=== PATIENT | female | born 1990 | race Caucasian/White ===

== ENCOUNTER 2025-09-06 22:25 | Emergency (ER) | payer BC, SELFPAY ==
[2025-09-06 22:26] VITALS: BP 148/83; PULSE 88; RESP 16; TEMP 36.8; O2SAT 99; BMI 43.5
[2025-09-06] MEDS: 0.9% Normal Saline (1000mL) 1,000 ML 999 ML IV (22:53)
[2025-09-06] MEDS: DiphenhydrAMINE 50 MG/ML Syringe IV (22:54)
--- NOTE | 2025-09-06 22:54 | EX.ED.DYSGE1 ---
HPI History of Present Illness Chief Complaint: Headache Narrative Narrative: Patient was seen and examined after presenting to ED for headache she states that she normally gets migraines so this is not any different than her usual just happens to be taking a little longer today for it to resolve she states that it started today it was gradual in onset it is not the worst headache of her life she does have some sensitivity to light and she feels like with some movements of her head will cause like a shooting numbing pain down into her left arm. PFSH PFS Medical History Migraine Home Medications ?Medication ?Instructions ?Recorded ?Last Taken ?Type loratadine 10 mg tablet 10 mg PO DAILY 09/06/25 Unknown History (Allerclear) Allergy/AdvReac Type Severity Reaction Status Date / Time No Known Allergies Allergy Verified 09/06/25 22:28 Surgical History Previous section Social History Smoking Status: Current every day smoker tobacco type: cigarettes ROS ROS ED ROS Narrative Pertinent Positives: Headache sensitivity to light vomiting Pertinent Negatives: Fevers neck stiffness diarrhea chest pain pressure shortness of breath The remainder of review of systems negative unless otherwise stated in the HPI above. Systems reviewed including constitutional, psychiatric, cardiovascular, respiratory, integument, HENT, gastrointestinal. EXAM Physical Exam Narrative Exam Narrative: Patient is afebrile hemodynamically stable she is normocephalic atraumatic pupils equal round reactive to light her speech is clear no focal neurodeficits no evidence of cerebellar dysfunction or ataxia normal range of motion of her head and neck she does not appear toxic she does have reproducible shooting pain into her left arm when palpating the base of her left skull there is no crepitus no skin discoloration there Const Vital Signs: 09/06/25 22:26 Temperature 98.3 F Temperature Source Oral Pulse Rate 88 Respiratory Rate 16 Blood Pressure 148/83 H Blood Pressure Mean 104 Pulse Ox 99 Oxygen Delivery Method Room Air MDM MDM MDM Narrative Medical decision making narrative: Nursing notes, triage notes, available previous documentation, and vital signs were reviewed. Any discrepancies noted were addressed. Differential Diagnoses: Typical migraine headache with associated muscle spasm near the occipital region on the left side not meningitis low suspicion for subarachnoid hemorrhage or intracranial mass Interventions: Benadryl Reglan Toradol Fluids Given: 1 L normal saline Labs Reviewed: Not clinically indicated at this time Imaging Reviewed: Considered imaging but not clinically indicated Previous Documentation Reviewed: None available or applicable at this time. ED Course: Patient presenting with headache states that it is like her usual migraine just lasting a little longer today should be given medications for treatment we will monitor and reassess for improvement. 09/07/2025 0109: Patient states that she feels fantastic and is ready to go home patient be discharged with return precautions follow-up recommendation she is stable for discharge. This note was made utilizing voice recognition software. All attempts were made to correct spelling or other errors prior to note completion. However, due to the fast-paced nature of emergency medicine, some errors may still be present. Discharge Plan Triage Chief Complaint: Headache ED Provider: Kashif Sheppard Dx/Rx/DC Orders Clinical Impression: Migraine, Cervical paraspinal muscle spasm, Photophobia Instructions: ED Headache Unspecified Prescriptions: No Action loratadine [Allerclear] 10 mg tablet 10 mg PO DAILY Primary Care Provider: Care Physician,No Primary Referrals: Danny Ortiz MD [Med Staff - Consulting, Neurology] - As soon as possible Care Physician,No Primary [Primary Care Provider, Medical] Activity Restrictions/Additional Instructions: Be sure to follow-up with your primary care doctor I will provide you with a referral to neurology for your migraines please return if worse Print Language: Citizen Of [place] Disposition Disposition: Home, Self Care
--- OUTSIDE RECORDS SUMMARY | 2025-09-06 23:06 | XMS RPT_ITS | CCD ---
Author Organization [facility] Partnership [facility] Care Team Providers Care Asphalt Tamper Name Role Phone No Doctor Assigned, Nodr Unavailable Unavail able Rey, Katina E Unavailable Unavailabl e Rey, Katina E Unavailable Unavailabl e Unavailable Primary Care Provider SABINO Gilbert Attending Unavailable SABINO CHURCH Attending Unavailable RASHAD MENDES II Attending UnavailSABINO Espinoza Referring Unavailable SABINO CHURCH Referring Unavailable Allergies Allergy Classification Reported Allergen(s) Allergy Type Date of Onset Reaction(s) Facility (1 source) acetaminophen / oxyCODONE; Translations: [Percocet 5/325] Drug Allergy [facility]ository (1 source) amoxicillin / clavulanate; Translations: [Augmentin] Drug Allergy [facility] (1 source) diphenhydrAMINE; Translations: [Benadryl] Drug Allergy [facility] (6 sources) Latex; Translations: [Latex] Propensity to adverse reactions to drug (disorder) 06-12-20 Rash [facility]ository (1 source) Amoxicillin / Clavulanate Drug Allergy 08-07-20 Hives [facility] (1 source) diphenhydrAMINE Drug Allergy 08-07-20 Mental Status Change [facility] Medications Completed/Discontinued Medications Medication Drug Class(es) Dates Sig (Normalized) Sig (Original) acetaminophen 325 mg oral capsule (4 sources) acetaminophen (T YLENOL) 325 mg cap Loratadine (4 sources) loratadine (CLAR ITIN ORAL) Take by mouth. 0 Active Comment on above: Take by mouth. medroxyPROGESTERone acetate 10 mg oral tablet (5 sources) Progestin Start: 3 End: 3 take 1 tablet by mouth once daily as needed medroxyPROGESTERone (PROVERA) 10 mg tablet Take 1 tablet by mouth once daily. 10 days a month as needed to start menses 10 tablet 4 06/12/2023 08/07/2023 Discontinued Comment on above: Take 1 tablet by jf th once daily. 10 days a month as needed to start menses Problems Problem Classification Problem Date Documented Date Episodic/Chronic Blindness and vision defects (2 sources) Bilateral myopia of eyes; Translations: [Myopia, bilateral] 06-29-2023 Episodic Headache; including migraine (4 sources) Migraine; Translations: [Migraine, unspecified, not intractable, without status migrainosus] Onset: 06-12-2023 06-12-2023 Chronic Immunizations and screening for infectious disease (6 sources) Patient encounter status; Translations: [Encounter for screening for human papillomavirus (HPV)] 06-12-2023 Episodic Malaise and fatigue (3 sources) Malaise and fatigue; Translations: [Other malaise] Onset: 06-12-2023 06-12-2023 Episodic Other female genital disorders (2 sources) Abnormal uterine bleeding; Translations: [Abnormal uterine and vaginal bleeding, unspecified] 06-12-2023 Chronic Other female genital disorders (1 source) Abnormal uterine and vaginal bleeding, unspecified; Translations: [Abnormal uterine bleeding (AUB)] Onset: 06-23-2023 Chronic Other screening for suspected conditions (not mental disorders or infectious disease) (3 sources) Cancer cervix screening status; Translations: [Encounter for screening for malignant neoplasm of cervix] Onset: 06-12-2023 06-12-2023 Episodic Results Test Name Value Interpretation Reference Range Facility [facility] 08-07-2023 CNOV Office Visit (OBGYWM ) -------- SUMIT MOSER ([id number]) 1990 F Date Time Provider Department 08/07/23 9:20 AM SABINO CHURCH OBGYWJeremy During your visit today, we recorded the following information about you: Blood pressure Weight Last Period 118/74 115.2 kg 08/02/23 Sabino Church MD 08/07/2023 11:02 AM Signed Sumit Moser is a 33 year old female who presents for problem visit for f/u AUB. HPI: 33 YOF took cyclic provera and had a normal menses w/ it x 2 episodes, no bleeding in between. Has Essures in place for contraception OB History T0 L2 SAB0 IAB0 Ectopic0 Multiple0 Live Births2 Silo Tender History LMP: 06/07/2023 (Exact Date), Having periods Age at Menarche: Age at First : Age at Menopause: Silo Tender History Comments: Sexual Activity: Not Asked; No partner data on record; not asked Contraception: Surgical PAST MEDICAL HISTORY Diagnosis Date Migraine PAST SURGICAL HISTORY Procedure Laterality Date SECTION HX 01/2013 ESSURE 2012 FAMILY HISTORY Problem Relation Age of Onset Heart Mother Diabetes Mother Thyroid Mother Social History Tobacco Use Smoking status: Every Day Types: Cigarettes Smokeless tobacco: Never Vaping Use Vaping Use: Never used Substance Use Topics Alcohol use: Yes Drug use: Never Comment: second hand marijuana Current Outpatient Medications Medication Sig acetaminophen (TYLENOL) 325 mg cap loratadine (CLARITIN ORAL) Take by mouth. medroxyPROGESTERone (PROVERA) 10 mg tablet Take 1 tablet by mouth once daily. 10 days a month as needed to start menses No current facility-administered medications for this visit. Allergies As of Date: 08/07/2023 Allergen Noted Reaction LATEX 06/12/2023 Rash Fully Assessed 06/29/2023 Allergies and current medication updated:Yes EXAM: LMP 06/07/2023 GENERAL: pleasant, female in no apparent distress ASSESSMENT AND PLAN: Encounter Diagnosis ICD-10-CM 1. Need for prophylactic vaccination/inoculation against viral disease Z23 second dose of HPV vaccine today reviewed labs and US doing well on cyclcic provera to control menses, cont. w/ this for now. Sabino Church MD Allergies As of Date: 08/07/2023 Noted Allergy Reaction AMOXICILLIN-POT CLAVULANATE 08/07/2023 4 - Hives Comments: As a child DIPHENHYDRAMINE 08/07/2023 1 - Mental Status Change LATEX 06/12/2023 2 - Rash Date Reviewed: 08/07/2023 Reviewed by: Sabino Church MD - Fully Assessed Reason for Visit: Follow Up [171] Cmt: Ultrasound and garasil Primary Visit Diagnosis:Screening cholesterol level [Z13.220] Other Visit Diagnosis:Need for prophylactic vaccination/inoculation against viral disease [Z23] Order(s):HPV VACCINE, 9-VALENT (GARDASIL 9) [[id number]] Order #: [id number] LIPID PANEL BASIC [SQLIPB] Order #: [id number] FUTURE medroxyPROGESTERone (PROVERA) 10 mg tabletTake 1 tablet by mouth once daily. 10 days a month as needed to start mensesDisp: 10 tabletRfl: 11 Prescriptions as of 08/07/2023 - medroxyPROGESTERone (PROVERA) 10 mg tablet Take 1 tablet by mouth once daily. 10 days a month as needed to start menses - acetaminophen (TYLENOL) 325 mg cap - loratadine (CLARITIN ORAL) Take by mouth. Problem List As Of Date 08/07/2023 Noted Resolved Migraine [G43.909] 06/12/2023 Prescriptions ordered this encounter Disp Refills Start End MEDROXYPROGESTERONE 10 MG TABLET 10 t* 11 08/07/2023 Route: ORAL Sig: Take 1 tablet by mouth once daily. 10 days a month as needed to start menses Medications Discontinued During This Encounter Prescriptions - medroxyPROGESTERone (PROVERA) 10 mg tablet (Discontinued) Take 1 tablet by mouth once daily. 10 days a month as needed to start menses Encounter Status:Closed by SABINO CHURCH on 08/07/23 Normal [facility] FEMALE PELVIS TRANSVAGon 06-23-2023 US FEMALE PELVIS TRANSVAG * * *Final Report* * * DATE OF EXAM: Jun 23 2023 9:29AM WRU 1060 - US FEMALE PELVIS TRANSVAG / PROCEDURE REASON: Abnormal uterine bleeding (AUB) * * * * Physician Interpretation * * * * EXAMINATION: TRANSVAGINAL AND LIMITED TRANSABDOMINAL FEMALE PELVIC ULTRASOUND CLINICAL HISTORY: Abnormal uterine bleeding. TECHNIQUE: Sonography of the pelvis was performed by transvaginal and transabdominal (limited) techniques. Images were obtained and stored in a permanent archive. MQ: COMPARISON: None RESULT: Uterus: -Size: 7.7 x 3.9 x 5.9 cm -Orientation: Anteverted. The uterus appears septate/arcuate. -Endometrial echo complex: Evaluation of the endometrium was inadequate. The right and left endometrium/endometrial noted primarily in the upper portion, measuring 5 mm and 4 mm respectively. The right and left essure devices suspected. -Cervix: Small nabothian cysts are suspected. -Adenomyosis assessment: There are no sonographic findings of adenomyosis. -Fibroids: There are no fibroids. Right Ovary: 3.7 x 1.7 x 3 cm - Normal sonographic appearance with physiologic follicles. Doppler imaging showed normal arterial and venous flow throughout the ovary. Left Ovary: 3.1 x 2 x 2.5 cm - Normal sonographic appearance with physiologic follicles. Doppler imaging showed normal arterial and venous flow throughout the ovary. Free Fluid: No abnormal free fluid is present. IMPRESSION: Septate/arcuate.uterus as described. Deputy Of Counter Intelligence: [facility] Transcribe Date/Time: Jun 25 2023 4:34P Dictated by : MESERET OSWALD MD This examination was interpreted and the report reviewed and electronically signed by: MESERET OSWALD MD on Jun 25 2023 4:38PM EST [id number] Normal [facility] CBC panel Auto (Bld)on 06-12 Erythrocyte distribution width (RBC) [Ratio] 12.3 % Normal 11.5-15.0 [facility] Comment on above: Order Comment: Speci men Type: BLOOD SPECIMEN Ordering Facility: [facility] Address: [address] [id number] Performed By: #### 5 8410-2 #### [facility] CLIA [id number] [address] [place] [address] [place] Hematocrit (Bld) [Volume fraction] 42.3 % Normal 36.0-46.0 [facility] Comment on above: Order Comment: Speci men Type: BLOOD SPECIMEN Ordering Facility: [facility] Address: [address] [id number] Performed By: #### 5 8410-2 #### [facility] CLIA [id number] [address] [place] [address] [place] Hemoglobin (Bld) [Mass/Vol] 14.7 g/dL Normal 11.5-15.5 [facility] Comment on above: Order Comment: Speci men Type: BLOOD SPECIMEN Ordering Facility: [facility] Address: [address] [place] [address] Performed By: #### 5 8410-2 #### [facility] CLIA [id number] [address] [place] [address] [place] MCH (RBC) [Entitic mass] 30.2 pg Normal 26.0-34.0 [facility] Comment on above: Order Comment: Speci men Type: BLOOD SPECIMEN Ordering Facility: [facility] Address: [address] [place] [address] Performed By: #### 5 8410-2 #### [facility] [place] [id number] [address] [place] [address] [place] MCHC (RBC) [Mass/Vol] 34.8 g/dL Normal 30.5-36.0 [facility] Comment on above: Order Comment: Speci men Type: BLOOD SPECIMEN Ordering Facility: [facility] Address: [address] [place] [address] Performed By: #### 5 8410-2 #### [facility] [place] [id number] [address] [place] [address] [place] MCV (RBC) [Entitic vol] 87.0 fL Normal 80.0-100.0 [facility] Comment on above: Order Comment: Speci men Type: BLOOD SPECIMEN Ordering Facility: [facility] Address: [address] [place] [address] Performed By: #### 5 8410-2 #### [facility] [place] [id number] [address] [place] [address] [place] Nucleated RBC (Bld) [#/Vol] 10*3/uL Normal <0.01 [facility] Comment on above: Order Comment: Speci men Type: BLOOD SPECIMEN Ordering Facility: [facility] Address: [address] [place] [address] Performed By: #### 5 8410-2 #### [facility] CLIA [id number] [address] [place] [address] [place] Platelet mean volume (Bld) [Entitic vol] 8.7 fL Low 9.0-12.7 [facility] Comment on above: Order Comment: Speci men Type: BLOOD SPECIMEN Ordering Facility: [facility] Address: [address] [place] [address] Performed By: #### 5 8410-2 #### [facility] CLIA [id number] [address] [place] [address] [place] Platelets (Bld) [#/Vol] 331 10*3/uL Normal 150-400 [facility] Comment on above: Order Comment: Speci men Type: BLOOD SPECIMEN Ordering Facility: [facility] Address: [address] [place] [address] Performed By: #### 5 8410-2 #### [facility] CLIA [id number] [address] [place] [address] [place] RBC (Bld) [#/Vol] 4.86 10*6/uL Normal 3.90-5.20 [facility] Comment on above: Order Comment: Speci men Type: BLOOD SPECIMEN Ordering Facility: [facility] Address: [address] [place], [place] [address] Performed By: #### 5 8410-2 #### [facility] CLIA [id number] [address] [place] [address] [place] WBC (Bld) [#/Vol] 9.65 10*3/uL Normal 3.70-11.00 [facility] Comment on above: Order Comment: Speci men Type: BLOOD SPECIMEN Ordering Facility: [facility] Address: [place] [address] Performed By: #### 5 8410-2 #### [facility] MING [id number] [address] [place] [address] [place] Erythrocyte distribution width (RBC) [Ratio] 12.3 % 11.5 - 15.0 % [facility] Hematocrit (Bld) [Volume fraction] 42.3 % 36.0 - 46.0 % [facility] Hemoglobin (Bld) [Mass/Vol] 14.7 g/dL 11.5 - 15.5 g/dL [facility] MCH (RBC) [Entitic mass] 30.2 pg 26.0 - 34.0 pg [facility] MCHC (RBC) [Mass/Vol] 34.8 g/dL 30.5 - 36.0 g/dL [facility] MCV (RBC) [Entitic vol] 87.0 fL 80.0 - 100.0 fL [facility] Nucleated RBC (Bld) [#/Vol] <0.01 k/uL [facility] Platelet mean volume (Bld) [Entitic vol] 8.7 fL Low 9.0 - 12.7 fL [facility] Platelets (Bld) [#/Vol] 331 10*3/uL 150 - 400 k/uL [facility] RBC (Bld) [#/Vol] 4.86 10*6/uL 3.90 - 5.2 0 m/uL [facility] WBC (Bld) [#/Vol] 9.65 10*3/uL 3.70 - 11. 00 k/uL [facility] CNOVon 06-12-2023 CNOV Office Visit (OBGYWM ) -------- SUMIT MOSER ([id number]) 1990 F Date Time Provider Department 06/12/23 9:40 AM SABINO CHURCH OBGYWM During your visit today, we recorded the following information about you: Blood pressure Weight Height Last Period 122/84 116.6 kg 1.689 m 06/07/23 Sabino Church MD 06/12/2023 1:10 PM Signed Sumit is a 33 year old who presents for an annual gynecologic exam with complaints, heavy and irreg menses . Has always had heavy. Bleeds through overnight pad at times in a couple of hours. Sometimes skips a month. Sometimes spotting in the middle Menses: very irregular Contraception: Essure HPV vaccine: uncertain Last Pap: normal HPV: N/A History of abnormal pap: No Last mammogram: never Sexually active: Yes History of STDS: None Last sexual contact: one lifetime partner, no changes in this OB History T0 L2 SAB0 IAB0 Ectopic0 Multiple0 Live Births2 Silo Tender History LMP: 06/07/2023 (Exact Date), Having periods Age at Menarche: Age at First : Age at Menopause: Silo Tender History Comments: Sexual Activity: Yes; No partner data on record; ESSURE Contraception: Surgical PAST MEDICAL HISTORY Diagnosis Date Migraine PAST SURGICAL HISTORY Procedure Laterality Date SECTION HX 01/2013 ESSURE 2012 FAMILY HISTORY Problem Relation Age of Onset Heart Mother Diabetes Mother Thyroid Mother SOCIAL HISTORY Social History Tobacco Use Smoking status: Every Day Types: Cigarettes Smokeless tobacco: Never Vaping Use Vaping Use: Never used Substance Use Topics Alcohol use: Yes Drug use: Never Comment: second hand marijuana REVIEW OF SYSTEMS Abdomen: No abdominal pain, nausea, vomiting, diarrhea, or constipation. No bloating, early satiety, indigestion, or increased flatulence. Bladder: No dysuria, gross hematuria, urinary frequency, urinary urgency, or incontinence. Breast: No breast lumps, nipple d/c, overlying skin changes, redness or skin retraction. Allergies and current medication updated:Yes EXAM: BP 122/84 Ht 5' 6.5 (1.69m) Wt 257 lb (116.6kg) LMP 06/07/2023 BMI 40.86 kg/(m2). GENERAL: pleasant, female in no apparent distress HEENT: Normocephalic, atraumatic, mucus membranes moist, and no lesions NECK: Supple, full range of motion, no adenopathy, and thyroid normal DERMATOLOGY: Normal, without lesions, non-icteric, and non-hirsute BREAST: soft, non-tender, symmetric, no dominant mass, normal nipple-areolar complex, no lymphadenopathy, and no nipple discharge CHEST: Normal inspiratory effort ABDOMEN: soft, non-tender, and no masses PELVIC: external genitalia normal, normal Bartholin's glands, urethra, [place]'s glands, no vulvar lesions, no cervical lesions, good vaginal support, physiologic discharge present, normal appearing perineal body and perianal region BIMANUAL: uterus normal size, shape and consistency, no adnexal masses, and non-tender RECTOVAGINAL: deferred. NEURO: alert and oriented x3,exam grossly non-focal EXTREMITIES: normal ASSESSMENT/PLAN: 1) Health maintenance: Pap done with HPV. Mammogram starting age 40. hpv vaccine discussed, recpommended,agrees 2) Contraception: Essure. Contraceptive options reviewed and information provided. 3) STD screening: Declined STD check. 4) Follow up one year or sooner as needed AUB- check pelvic US and labs cyclic provera d/w her other options other health screens ordered Sabino Church MD Patient identified by name and date of . Sumit Moser is here for her HPV 9 vaccination, injection # one of the series. Patient ?No Gardasil injection was given without incident. See immunizations for details of immunizations administered today. VIS sheet provided: Yes Patient advised to follow up in 2 months from the 1st injection Provider Sabino Church MD was present in office at time of injection. Sabino Han MA, MD 06/12/2023 10:10 AM Signed Gardasil Gardasil is a vaccine to protect against Human Papillomavirus (HPV) types 6, 11, 16, 18, 31,33,45, 52, 58. These viruses cause cancer and precancerous lesions on the cervix (opening between vagina and uterus), in the vagina and on the vulva (skin around the outside of the vagina) as well as genital warts. The vaccine cannot cause these diseases and cannot treat them if already present. Gardasil works best if given before contact with HPV. Most people are exposed to HPV soon after starting sexual activity. The vaccine is recommended between the ages of 9 and 45. Gardasil does not protect against all strains of HPV. Women who receive the vaccine still need to have regular pelvic exams and cervical cancer screening with the pap smear. You should ask your doctor if Gardasil is right for you if you have a weak (more content not included)... Normal [facility] HPV W/GENOTYPE THIN PREPon 0 06-12-2023 HPV 16 Ag Ql (Unsp spec) Negative Normal Negative for HPV DNA high risk type 16 by PCR [facility] Comment on above: Order Comment: Speci men Type: FLUID SPECIMEN Ordering Facility: [facility] Address: [address] [place] [address] Performed By: #### H PVHRT #### [facility] CLIA [id number] [address] [place] [address] HPV 18 Ag Ql (Unsp spec) Negative Normal Negative for HPV DNA high risk type 18 by PCR [facility] Comment on above: Order Comment: Speci men Type: FLUID SPECIMEN Ordering Facility: [facility] Address: [address] [place] [address] Performed By: #### H PVHRT #### [facility] CLIA [id number] [address] [place] [address] [place] HPV 31+33+35+39+45+51+ 52+56+58+59+66+68 DNA DONNA+probe Ql (Cvx) Negative for HPV DNA high risk types: 31,33,35,39,45,51,52,56, 58,59,66,68 by PCR. Normal Negative for HPV DNA high risk types: 31,33,35,39,45 ,51,52,56,58,5 9,66,68 by PCR. [facility] Comment on above: Order Comment: Speci men Type: FLUID SPECIMEN Ordering Facility: [facility] Address: [address] [place] [address] Performed By: #### H PVHRT #### [facility] CLIA [id number] [address] [place] [address] [place] HbA1c (Bld)on 06-12-2023 Average glucose Estimated from glycated hemoglobin (Bld) [Mass/Vol] 105 mg/dL [facility] HbA1c (Bld) [Mass fraction] 5.3 % 4.3 - 5.6 % [facility] Average glucose Estimated from glycated hemoglobin (Bld) [Mass/Vol] 105 mg/dL Normal [facility] Comment on above: Order Comment: Briana cartwright Type: BLOOD SPECIMEN Ordering Facility: [facility] Address: [address] [place] [address] Result Comment: eAG: (Estimated average glucose) is a calculated value from HgbA1c and is printing supplies sales representative of the average blood glucose level in the last 2-3 month period. Performed By: #### 5 5454-3 #### [facility] CLIA [id number] [facility] HbA1c (Bld) [Mass fraction] 5.3 % Normal 4.3-5.6 [facility] Comment on above: Order Comment: Briana cartwright Type: BLOOD SPECIMEN Ordering Facility: [facility] Address: [address] [place] [address] Result Comment: Amer [place] Diabetes Association guidelines indicate that patients with HgbA1c in the range 5.7-6.4% are at increased risk for development of diabetes, and intervention by lifestyle modification may be beneficial. HgbA1c greater or equal to 6.5% is considered diagnostic of diabetes. Performed By: #### 5 5454-3 #### [facility] CLIA [id number] [address] [place] [address] [place] PAP TESTon 06-12-2023 ADEQUACY Satisfactory for interpretation Normal [facility] Comment on above: Order Comment: Briana cartwright Type: FLUID SPECIMEN Ordering Facility: [facility] Address: [address] [place] [address] Performed By: #### L [id number] #### [facility] CLIA [id number] [address] [place] CASE REPORT Normal [facility] Comment on above: Order Comment: Speci men Type: FLUID SPECIMEN Ordering Facility: [facility] Address: [address] [place] [address] Result Comment: Gyne cologic Cytology Report Case: [id number] Authorizing Provider: Sabino Church MD Collected: 06/12/2023 10:22 AM Ordering Location: OB/Gynecology Received: 06/13/2023 08:38 AM First Screen: Gayathri Church, [place], ASCP Specimen: Pap Test, ThinPrep, Cervix Performed By: #### L [id number] #### [facility] CLIA [id number] [facility] [place] [address] [place] CLINICAL HISTORY, CYTOLOGY, JUNIOR RECRUITER Routine Exam Normal [facility] Comment on above: Order Comment: Speci men Type: FLUID SPECIMEN Ordering Facility: [facility] Address: [address] [place] [address] Performed By: #### L [id number] #### [facility] CLIA [id number] [address] [place] [address] [place] CYTOLOGY PAP OTHER INT Predominance of coccobacilli consistent with shift in vaginal cody Normal [facility] Comment on above: Order Comment: Speci men Type: FLUID SPECIMEN Ordering Facility: [facility] Address: [address] [place] [address] Performed By: #### L [id number] #### [facility] CLIA [id number] [address] [place] [address] [place] FINAL PERFORMING LAB Normal [facility] Comment on above: Order Comment: Speci men Type: FLUID SPECIMEN Ordering Facility: [facility] Address: [address] [place] [address] Result Comment: Tech nical component, ballast cleaning operator screening performed at [facility], [address] [id number] CLIA# [id number] Diagnostic interpretation performed at [facility], [facility] [id number] CLIA# [id number] Specialist: Wally Kim M.D. Performed By: #### L [id number] #### [facility] CLIA [id number] [address] [place] [address] [place] HPV REFLEX Yes HPV Normal [facility] Comment on above: Order Comment: Speci men Type: FLUID SPECIMEN Ordering Facility: [facility] Address: [address] [place] [address] Performed By: #### L [id number] #### [facility] CLIA [id number] [address] [place] [address] [place] INTERPRETATION, CYTOLOGY, JUNIOR RECRUITER Normal [facility] Comment on above: Order Comment: Speci men Type: FLUID SPECIMEN Ordering Facility: [facility] Address: [address] [place] [address] Result Comment: Nega tive for intraepithelial lesion or malignancy. Performed By: #### L [id number] #### [facility] CLIA [id number] [address] [place] [address] [place] LMP 06/07/2023 Normal [facility] Comment on above: Order Comment: Speci men Type: FLUID SPECIMEN Ordering Facility: [facility] Address: [address] [place] [address] Performed By: #### L [id number] #### [facility] CLIA [id number] [address] [place] [address] [place] PAP DISCLAIMER COMMENT The Pap Smear is a screening test for cervical cancer. False negative results occur with all screening tests, emphasizing the need for rescreening at recommended intervals, and clinical correlation. Normal [facility] Comment on above: Order Comment: Speci men Type: FLUID SPECIMEN Ordering Facility: [facility] Address: [address] [place] [address] Performed By: #### L [id number] #### [facility] CLIA [id number] [address] [place] [address] OF [place] PAP ONLINE PRODUCER COMMENT This specimen has be en analyzed by the ThinPrep Imaging System, an automated imaging and review system, which assists the laboratory in evaluating cells on ThinPrep Pap tests. Following automated imaging, selected chaidez from every slide are reviewed by a ballast cleaning operator. Normal [facility] Comment on above: Order Comment: Speci men Type: FLUID SPECIMEN Ordering Facility: [facility] Address: [address] [place] [address] Performed By: #### L [id number] #### [facility] CLIA [id number] [address] [place] [address] [place] TSH BLDon 06-12-2023 TSH Qn 1.070 m[IU]/L 0.270 - 4.200 mIU/L [facility] TSH SerPl-aCncon 06-12-2023 TSH Qn 1.070 m[IU]/L Normal 0.270-4.200 [facility] Comment on above: Order Comment: Speci men Type: BLOOD SPECIMEN Ordering Facility: [facility] Address: [address] [place] [address] Result Comment: If t he patient is , TSH reference range varies by gestational period: First Trimester (weeks 9-12): 0.180-2.990 mIU/L Second Trimester: 0.110-3.980 mIU/L Third Trimester: 0.480-4.710 mIU/L Reji Chambers et al. A Practical Approach for the Verifications and Determination of Site- and Trimester-Specific Reference Intervals for Thyroid Function tests in . Thyroid, 2019:29:3:412-420. Iain E, et al. 2017 Guidelines of the [place] Thyroid [employer] for the Diagnosis and Management of Thyroid Disease during and the . Thyroid, 2017:27:3:315-389. 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 Typing wasconfirmed by monoclonal antibody microscopicimmunofluorescence.Performed At: [facility] [id number] Monty Gil MD Ph:[phone] Performed By: #### 1 [id number] ####[facility] Send Outs [address] [place] [address] C Urineon 07-27-2017 C Urine Final Report: Normal skin cody isolated Normal [facility] Comment on above: Performed By: #### 2 [id number] ####[facility] Microbiology [address] [place] [address] U BhCG Qlton 07-25-2017 HCG.beta subunit Qn Negative Normal Neg [facility] Comment on above: Performed By: #### 2 [id number] ####[facility] Urinalysis Manual [address] [place] [address] UA Completeon 07-25-2017 UA Blood 3+ Normal Negative [facility] Comment on above: Performed By: #### 8 [id number] ####[facility] Urinalysis Automated [address] [place] [address] UA Bacteria 1+ /HPF Abnormal None [facility] Comment on above: Performed By: #### 8 [id number] ####[facility] Urinalysis Automated [address] [place] [address] UA Clarity Cloudy Abnormal Clear [facility] Comment on above: Performed By: #### 8 [id number] ####[facility] Urinalysis Automated [address] [place] [address] UA Leuk Est 3+ Abnormal Negative [facility] Comment on above: Performed By: #### 8 [id number] ####[facility] Urinalysis Automated [address] [place] [address] UA Mucous Many Abnormal Trace [facility] Comment on above: Performed By: #### 8 [id number] ####[facility] Urinalysis Automated [address] [place] [address] UA Nitrite Negative Normal Negative [facility] Comment on above: Performed By: #### 8 [id number] ####[facility] Urinalysis Automated [address] [place] [address] UA pH 5.0 Normal 4.6-8.0 [facility] Comment on above: Performed By: #### 8 [id number] ####[facility] Urinalysis Automated [address] [place] [address] UA Protein 1+ Abnormal Negative [facility] Comment on above: Performed By: #### 8 [id number] ####[facility] Urinalysis Automated [address] [place] [address] UA Spec Grav 1.020 Normal 1.003-1.030 [facility] Comment on above: Performed By: #### 8 [id number] ####[facility] Urinalysis Automated [address] [place] [address] UA Squam Epithelial 10-20 Abnormal 0-5 [facility] Comment on above: Performed By: #### 8 [id number] ####[facility] Urinalysis Automated [address] [place] [address] UA Urobilinogen Negative Normal [facility] Comment on above: Performed By: #### 8 [id number] ####[facility] Urinalysis Automated [address] [place] [address] UA WBC >50 Abnormal 0-5 [facility] Comment on above: Performed By: #### 8 [id number] ####[facility] Urinalysis Automated [address] [place] [address] Urine, color Tanika Abnormal Yellow [facility] Comment on above: Performed By: #### 8 [id number] ####[facility] Urinalysis Automated [address] [place] [address] Urine, erythrocytes 20-50 Abnormal 0-3 [facility] Comment on above: Performed By: #### 8 [id number] ####[facility] Urinalysis Automated [address] [place] [address] Urine, glucose Negative Normal Negative [facility] Comment on above: Performed By: #### 8 [id number] ####[facility] Urinalysis Automated [address] [place] [address] Urine, ketones presence Negative Normal Negative [facility] Comment on above: Performed By: #### 8 [id number] ####[facility] Urinalysis Automated [address] [place] [address] Urine, urobilinogen Negative Normal Negative [facility] Comment on above: Performed By: #### 8 [id number] ####[facility] Urinalysis Automated [address] [place] [address] UA WBC Clump Occasional Abnormal None [facility] Comment on above: Performed By: #### 8 [id number] ####[facility] Urinalysis Automated [address] [place] [address] Vital Signs Date Time Vital Sign Value Performing Clinician Yahaira chaudhary 08-07-2023 09:15-0400 Body weight 115.21 kg Sabino Church MD Work Phone: [facility] 08-07-2023 09:15-0400 Diastolic blood pressure 74 mm[Hg] Sabino Church MD Work Phone: [facility] 08-07-2023 09:15-0400 Systolic blood pressure 118 mm[Hg] Sabino Church MD Work Phone: [facility] 06-12-2023 09:29-0400 Body height 168.9 cm Sabino Church MD Work Phone: [facility] 06-12-2023 09:29-0400 Body weight 116.57 kg Sabino Church MD Work Phone: [facility] 06-12-2023 09:29-0400 Diastolic blood pressure 84 mm[Hg] Sabino Church MD Work Phone: [facility] 06-12-2023 09:29-0400 Systolic blood pressure 122 mm[Hg] Sabino Church MD Work Phone: [facility] Encounters Encounter Date Encounter Type Care Provider Facility Start: 08-07-2023 End: 08-07-2023 ambulatory SABINO CHURCH Facility:[facility] Start: 08-07-2023 End: 08-07-2023 Patient encounter procedure Sabino Church MD Work Phone: OB/Gynecology Comment on above: Screening cholestero l level (Primary Dx); Need for prophylactic vaccination/inoculation against viral disease Start: 06-29-2023 End: 06-29-2023 ambulatory RASHAD MENDES II Facility:[facility] Start: 06-29-2023 End: 06-29-2023 Patient encounter procedure Rashad Glenis Vaughn OD Work Phone: Optometry Comment on above: Myopia, bilateral (P rimary Dx); Regular astigmatism, bilateral Start: 06-23-2023 End: 06-23-2023 ambulatory SABINO CHURCH Facility:[facility] Start: 06-23-2023 End: 06-23-2023 Subsequent hospital visit by physician [facility] Work Phone: Radiology Comment on above: Abnormal uterine ble eding (AUB) [N93.9] Start: 06-12-2023 End: 06-13-2023 ambulatory SABINO CHURCH Facility:[facility] Start: 06-12-2023 End: 06-12-2023 Patient encounter procedure Sabino Church MD Work Phone: OB/Gynecology Comment on above: Encounter for gyneco logical examination (general) (routine) without abnormal findings (Primary Dx); Screening for cervical cancer; Encounter for screening for human papillomavirus (HPV); Abnormal uterine bleeding (AUB); Screening cholesterol level; Encounter for screening for diabetes mellitus; Malaise and fatigue; Need for prophylactic vaccination/inoculation against viral disease Start: 06-12-2023 End: 06-12-2023 Patient encounter status Sabino Church MD Work Phone: [facility] Start: 07-25-2017 End: 07-25-2017 Emergency department patient visit Nodr No Doctor Assigned Facility:[facility] Procedures Date Procedure Procedure Detail Performing Clinician Start: 06-23-2023 Us transvaginal Sabino Church MD Work Phone: Plan of Treatment Date Care Activity Detail Author Start: 06-12-2028 HPV Testing HPV Testing [facility] Start: 06-12-2028 Pap Testing Pap Testing [facility] Start: 12-13-2023 HPV Vaccine (3 - 3-d ose SCDM series) HPV Vaccine (3 - 3-dose SCDM series) [facility] Start: 12-09-2023 9vhpv vacc 2/3 dose sched im use HPV VACCINE, 9-VALENT (GARDASIL 9) Immunization/Injection Routine Need for prophylactic vaccination/inoculation against viral disease Expected: 12/09/2023 (Approximate) [facility] Work Phone: Comment on above: Expected: 12/09/2023 (Approximate) Start: 08-11-2023 9vhpv vacc 2/3 dose sched im use HPV VACCINE, 9-VALENT (GARDASIL 9) Immunization/Injection Routine Need for prophylactic vaccination/inoculation against viral disease Expected: 08/11/2023 (Approximate) [facility] Work Phone: Comment on above: Expected: 08/11/2023 (Approximate) Start: 08-07-2023 End: 11-06-2023 Lipid 1996 panel - Serum or Plasma LIPID PANEL BASIC Lab Routine Screening cholesterol level Expected: 08/07/2023, Expires: 11/06/2023 [facility] Work Phone: Comment on above: Expected: 08/07/2023 , Expires: 11/06/2023 Start: 07-10-2023 HPV VACCINE (2 - 3-d ose SCDM series) HPV VACCINE (2 - 3-dose SCDM series) [facility] Start: 06-16-2023 Covid-19 Vaccine ( season) Covid-19 Vaccine ( season) [facility] Start: 06-16-2023 Influenza vaccination [facility] Start: 06-12-2023 End: 08-12-2023 Lipid 1996 panel - Serum or Plasma LIPID PANEL BASIC Lab Routine Screening cholesterol level Expected: 06/12/2023, Expires: 08/12/2023 [facility] Work Phone: Comment on above: Expected: 06/12/2023 , Expires: 08/12/2023 Start: 10-16-2022 DEPRESSION ASSESSMENT DEPRESSION ASS ESSMENT [facility] Start: 02-01-2022 HPV TESTING HPV TESTING [facility] Start: 05-17-2021 Covid-19 Vaccine (3 - Pfizer series) Covid-19 Vaccine (3 - Pfizer series) [facility] Start: 02-01-2013 PAP TESTING PAP TESTING [facility] Start: 02-01-2011 Urine microalbumin profile [facility] Start: 02-01-2010 HEPATITIS C SCREENING HEPATITIS C SC REENING [facility] Start: 02-01-2010 HIV SCREENING HIV SCREENING [facility] Start: 02-01-1998 PNEUMOCOCCAL (1 - PCV) PNEUMOCOCCAL (1 - PCV) [facility] Start: 02-01-1998 Pneumococcal vaccination Pneumococcal Vaccine (1 - PCV) [facility] Start: 1992 COVID-19 VACCINE (#1) COVID-19 VACCI NE (#1) [facility] Start: 1992 HEPATITIS B (1 of 3 - 3-dose series) HEPATITIS B (1 of 3 - 3-dose series) [facility] Start: 1992 Hepatitis B Vaccine (1 of 3 - 3-dose series) Hepatitis B Vaccine (1 of 3 - 3-dose series) [facility] PAP TEST PAP TEST Lab [facility] Encounter for gynecological examination (general) (routine) without abnormal findings Screening for cervical cancer Encounter for screening for human papillomavirus (HPV) Ordered: 06/12/2023 [facility] Work Phone: Comment on above: Ordered: 06/12/2023 Therapeutic prophylactic/dx injection subq/im THER/PROPH/DIAG INJ, SC/IM Procedures Routine Need for prophylactic vaccination/inoculation against viral disease Ordered: 06/12/2023 [facility] Work Phone: Comment on above: Ordered: 06/12/2023 End: 07-11-2024 Us transvaginal US FEMALE PELVIS TRANSVAG Radiology Routine Abnormal uterine bleeding (AUB) 1 Occurrences starting 06/12/2023 until 07/11/2024 [facility] Work Phone: Comment on above: 1 Occurrences starti ng 06/12/2023 until 07/11/2024 [facility] Immunizations Immunization Date Immunization Notes Care Provider Melva pan 08-07-2023 Human Papillomavirus 9-valent vaccine Sabino Church MD Work Phone: [facility] Work Phone: 06-12-2023 Human Papillomavirus 9-valent vaccine Sabino Church MD Work Phone: [facility] Payers Date Payer Category Payer Unknown [id number] 2022 Unknown [id number] 2017 Unknown Social History Date Type Detail Facility Start: 06-12-2023 Tobacco smoking stat us NHIS Smokes tobacco daily [facility] of tobacco use [facility] Start: 06-12-2023 Tobacco use and exposure Smoke less tobacco non-user [facility] Start: 06-12-2023 End: 08-07-2023 Alcohol intake Current drinker of alcohol (finding) [facility] Start: 06-12-2023 End: 08-07-2023 History of Social function [facility] Start: 06-12-2023 End: 08-07-2023 Tobacco use panel [facility] National Score (1-10 0), lower number is lower risk 89 [facility] Start: 1990 Sex Assigned At Female C [facility] Start: 06-10-2023 Gender identity Identifies as female gender (finding) [facility] Start: 06-10-2023 Sexual orientation Heterosexual (fin ding) [facility] Clinical Notes 06-12-2023 to 08-07-2023 Sabino Church MD - 08/07/2023 9:08 AM EDTPatient InstructionsRashad Mendes II OD - 06/29/2023 9:47 AM Nirali Tim RDMS - 06/23/2023 9:00 AM EDTPatient Instructions Note Date & Type Note Facility 08-07-2023 Note HNO ID: [id number] Author: Sabino Church MD Service: ? Author Type: Physician Type: Progress Notes Filed: 08/07/2023 11:02 AM Note Text: Sumit Moser is a 33 year old female who presents for problem visit for f/u AUB. HPI: 33 YOF took cyclic provera and had a normal menses w/ it x 2 episodes, no bleeding in between. Has Essures in place for contraception OB History T0 L2 SAB0 IAB0 Ectopic0 Multiple0 Live Births2 Silo Tender History LMP: 06/07/2023 (Exact Date), Having periods Age at Menarche: Age at First : Age at Menopause: Silo Tender History Comments: Sexual Activity: Not Asked; No partner data on record; not asked Contraception: Surgical PAST MEDICAL HISTORY Diagnosis Date Migraine PAST SURGICAL HISTORY Procedure Laterality Date SECTION HX 01/2013 ESSURE 2011 FAMILY HISTORY Problem Relation Age of Onset Heart Mother Diabetes Mother Thyroid Mother Social History Tobacco Use Smoking status: Every Day Types: Cigarettes Smokeless tobacco: Never Vaping Use Vaping Use: Never used Substance Use Topics Alcohol use: Yes Drug use: Never Comment: second hand marijuana Current Outpatient Medications Medication Sig acetaminophen (TYLENOL) 325 mg cap loratadine (CLARITIN ORAL) Take by mouth. medroxyPROGESTERone (PROVERA) 10 mg tablet Take 1 tablet by mouth once daily. 10 days a month as needed to start menses No current facility-administered medications for this visit. Allergies As of Date: 08/07/2023 Allergen Noted Reaction LATEX 06/12/2023 Rash Fully Assessed 06/29/2023 Allergies and current medication updated:Yes EXAM: LMP 06/07/2023 GENERAL: pleasant, female in no apparent distress ASSESSMENT AND PLAN: Encounter Diagnosis ICD-10-CM 1. Need for prophylactic vaccination/inoculation against viral disease Z23 second dose of HPV vaccine today reviewed labs and US doing well on cyclcic provera to control menses, cont. w/ this for now. Sabino Church MD [facility] 08-07-2023 History of Presen t illness Narrative Sumit Moser is a 33 year old female who presents for problem visit for f/u AUB. HPI: 33 YOF took cyclic provera and had a normal menses w/ it x 2 episodes, no bleeding in between. Has Essures in place for contraception OB History T0 L2 SAB0 IAB0 Ectopic0 Multiple0 Live Births2 Silo Tender History LMP: 06/07/2023 (Exact Date), Having periods Age at Menarche: Age at First : Age at Menopause: Silo Tender History Comments: Sexual Activity: Not Asked; No partner data on record; not asked Contraception: Surgical PAST MEDICAL HISTORY Diagnosis Date Migraine PAST SURGICAL HISTORY Procedure Laterality Date SECTION HX 01/2013 ESSURE 2011 FAMILY HISTORY Problem Relation Age of Onset Heart Mother Diabetes Mother Thyroid Mother Social History Tobacco Use Smoking status: Every Day Types: Cigarettes Smokeless tobacco: Never Vaping Use Vaping Use: Never used Substance Use Topics Alcohol use: Yes Drug use: Never Comment: second hand marijuana Current Outpatient Medications Medication Sig acetaminophen (TYLENOL) 325 mg cap loratadine (CLARITIN ORAL) Take by mouth. medroxyPROGESTERone (PROVERA) 10 mg tablet Take 1 tablet by mouth once daily. 10 days a month as needed to start menses No current facility-administered medications for this visit. Allergies As of Date: 08/07/2023 Allergen Noted Reaction LATEX 06/12/2023 Rash Fully Assessed 06/29/2023 Allergies and current medication updated:Yes EXAM: LMP 06/07/2023 GENERAL: pleasant, female in no apparent distress ASSESSMENT AND PLAN: Encounter Diagnosis ICD-10-CM 1. Need for prophylactic vaccination/inoculation against viral disease Z23 second dose of HPV vaccine today reviewed labs and US doing well on cyclcic provera to control menses, cont. w/ this for now. Sabino Church MD documented in this encounter [facility] 06-29-2023 Note HNO ID: [id number] Author: Rashad Mendes II, OD Service: ? Author Type: DEVELOPMENT VICE PRESIDENT Type: Progress Notes Filed: 06/29/2023 9:49 AM Note Text: Assessment and Plan H52.13 Myopia, bilateral (primary encounter diagnosis) H52.223 Regular astigmatism, bilateral Comment: Ocular health maintained with contact lens use. Small power shift in glasses and contact lenses. Recheck in one year. I have confirmed and edited as necessary the relevant ophthalmic history, ROS, and the neuro exam findings as obtained by others. I have seen and examined Sumit Moser. I have discussed the case and the management of this patient's care with the Resident/Fellow, if applicable. I also have reviewed and agree with the assessment and plan as stated above and agree with all of its relevant components. Rashad Mendes II, OD [facility] 06-29-2023 Instructions Rashad Mendes II, OD - 06/29/2023 9:49 AM EDT Assessment and Plan H52.13 Myopia, bilateral (primary encounter diagnosis) H52.223 Regular astigmatism, bilateral Comment: Ocular health maintained with contact lens use. Small power shift in glasses and contact lenses. Recheck in one year. I have confirmed and edited as necessary the relevant ophthalmic history, ROS, and the neuro exam findings as obtained by others. I have seen and examined Sumit Moser. I have discussed the case and the management of this patient's care with the Resident/Fellow, if applicable. I also have reviewed and agree with the assessment and plan as stated above and agree with all of its relevant components. Rashad Mendes II, OD documented in this encounter [facility] 06-29-2023 History of Presen t illness Narrative Assessment and Plan H52.13 Myopia, bilateral (primary encounter diagnosis) H52.223 Regular astigmatism, bilateral Comment: Ocular health maintained with contact lens use. Small power shift in glasses and contact lenses. Recheck in one year. I have confirmed and edited as necessary the relevant ophthalmic history, ROS, and the neuro exam findings as obtained by others. I have seen and examined Sumit Moser. I have discussed the case and the management of this patient's care with the Resident/Fellow, if applicable. I also have reviewed and agree with the assessment and plan as stated above and agree with all of its relevant components. Rashad Mendes II, OD documented in this encounter [facility] 06-23-2023 Note HNO ID: [id number] Author: Nirali Justice RDMS Service: ? Author Type: Organic Extractions Technician Type: Progress Notes Filed: 06/23/2023 9:24 AM Note Text: Radiology Service Progress Note PATIENT NAME: Sumit Moser DATE OF SERVICE: June 23, 2023 TIME: 9:24 AM PATIENT IDENTITY VERIFICATION COMPLETED USING TWO (2) IDENTIFIERS: Name and Date of confirmed by patient verbally. FALL SCREENING: Has the patient had 2 falls in the last year or 1 fall with injury or currently using an Ambulatory Assistive Device (Walker, Cane, Wheelchair, Crutches, etc.)? No PATIENT GENDER DATA: Female. status: : No status: NO. PATIENT RELEVANT IMPLANT DATA REVIEWED: Not Applicable RADIOLOGY DEPARTMENT: Ultrasound PERIPHERAL IV DATA: Not applicable SIGNED BY: Nirali Justice RDMS June 23, 2023 9:24 AM [facility] 06-23-2023 History of Presen t illness Narrative Radiology Service Progress Note PATIENT NAME: Sumit Moser DATE OF SERVICE: June 23, 2023 TIME: 9:24 AM PATIENT IDENTITY VERIFICATION COMPLETED USING TWO (2) IDENTIFIERS: Name and Date of confirmed by patient verbally. FALL SCREENING: Has the patient had 2 falls in the last year or 1 fall with injury or currently using an Ambulatory Assistive Device (Walker, Cane, Wheelchair, Crutches, etc.)? No PATIENT GENDER DATA: Female. status: : No status: NO. PATIENT RELEVANT IMPLANT DATA REVIEWED: Not Applicable RADIOLOGY DEPARTMENT: Ultrasound PERIPHERAL IV DATA: Not applicable SIGNED BY: Nirali Justice RDMS June 23, 2023 9:24 AM documented in this encounter [facility] 06-12-2023 Note HNO ID: [id number] Author: Sabino Church MD Service: ? Author Type: Physician Type: Progress Notes Filed: 06/12/2023 1:10 PM Note Text: Sumit is a 33 year old who presents for an annual gynecologic exam with complaints, heavy and irreg menses . Has always had heavy. Bleeds through overnight pad at times in a couple of hours. Sometimes skips a month. Sometimes spotting in the middle Menses: very irregular Contraception: Essure HPV vaccine: uncertain Last Pap: normal HPV: N/A History of abnormal pap: No Last mammogram: never Sexually active: Yes History of STDS: None Last sexual contact: one lifetime partner, no changes in this OB History T0 L2 SAB0 IAB0 Ectopic0 Multiple0 Live Births2 Silo Tender History LMP: 06/07/2023 (Exact Date), Having periods Age at Menarche: Age at First : Age at Menopause: Silo Tender History Comments: Sexual Activity: Yes; No partner data on record; BLANKA Contraception: Surgical PAST MEDICAL HISTORY Diagnosis Date Migraine PAST SURGICAL HISTORY Procedure Laterality Date SECTION HX 01/2013 ESSURE 2011 FAMILY HISTORY Problem Relation Age of Onset Heart Mother Diabetes Mother Thyroid Mother SOCIAL HISTORY Social History Tobacco Use Smoking status: Every Day Types: Cigarettes Smokeless tobacco: Never Vaping Use Vaping Use: Never used Substance Use Topics Alcohol use: Yes Drug use: Never Comment: second hand marijuana REVIEW OF SYSTEMS Abdomen: No abdominal pain, nausea, vomiting, diarrhea, or constipation. No bloating, early satiety, indigestion, or increased flatulence. Bladder: No dysuria, gross hematuria, urinary frequency, urinary urgency, or incontinence. Breast: No breast lumps, nipple d/c, overlying skin changes, redness or skin retraction. Allergies and current medication updated:Yes EXAM: BP 122/84 Ht 5' 6.5 (1.69m) Wt 257 lb (116.6kg) LMP 06/07/2023 BMI 40.86 kg/(m2). GENERAL: pleasant, female in no apparent distress HEENT: Normocephalic, atraumatic, mucus membranes moist, and no lesions NECK: Supple, full range of motion, no adenopathy, and thyroid normal DERMATOLOGY: Normal, without lesions, non-icteric, and non-hirsute BREAST: soft, non-tender, symmetric, no dominant mass, normal nipple-areolar complex, no lymphadenopathy, and no nipple discharge CHEST: Normal inspiratory effort ABDOMEN: soft, non-tender, and no masses PELVIC: external genitalia normal, normal Bartholin's glands, urethra, [place]'s glands, no vulvar lesions, no cervical lesions, good vaginal support, physiologic discharge present, normal appearing perineal body and perianal region BIMANUAL: uterus normal size, shape and consistency, no adnexal masses, and non-tender RECTOVAGINAL: deferred. NEURO: alert and oriented x3,exam grossly non-focal EXTREMITIES: normal ASSESSMENT/PLAN: 1) Health maintenance: Pap done with HPV. Mammogram starting age 40. hpv vaccine discussed, recpommended,agrees 2) Contraception: Essure. Contraceptive options reviewed and information provided. 3) STD screening: Declined STD check. 4) Follow up one year or sooner as needed AUB- check pelvic US and labs cyclic provera d/w her other options other health screens ordered Sabino Church MD Patient identified by name and date of . Sumit Moser is here for her HPV 9 vaccination, injection # one of the series. Patient ?No Gardasil injection was given without incident. See immunizations for details of immunizations administered today. VIS sheet provided: Yes Patient advised to follow up in 2 months from the 1st injection Provider Sabino Church MD was present in office at time of injection. Missy Corona MA [facility] 06-12-2023 Instructions Sabino Church MD - 06/12/2023 10:10 AM EDT Gardasil Gardasil is a vaccine to protect against Human Papillomavirus (HPV) types 6, 11, 16, 18, 31,33,45, 52, 58. These viruses cause cancer and precancerous lesions on the cervix (opening between vagina and uterus), in the vagina and on the vulva (skin around the outside of the vagina) as well as genital warts. The vaccine cannot cause these diseases and cannot treat them if already present. Gardasil works best if given before contact with HPV. Most people are exposed to HPV soon after starting sexual activity. The vaccine is recommended between the ages of 9 and 45. Gardasil does not protect against all strains of HPV. Women who receive the vaccine still need to have regular pelvic exams and cervical cancer screening with the pap smear. You should ask your doctor if Gardasil is right for you if you have a weakened immune system, a bleeding disorder, plan to become soon or have a current illness causing fever. Gardasil is not recommended for women. You should be sure your doctor is aware of any allergies you have and all medications and herbal supplements you take. Gardasil is given to those ages 9-14 in 2 doses at 0 and 8 months. In ages 15-45, three injections are given at 0,2,6 months. Common side effects include pain, redness, itching and swelling at the injection site, nausea, fever, dizziness and fainting. Rare but potentially serious reactions have been reported. These include allergic reaction, swollen glands, joint and muscle pain, weakness and Guillain-[place] syndrome. documented in this encounter [facility] 06-12-2023 History of Presen t illness Narrative Sumit is a 33 year old who presents for an annual gynecologic exam with complaints, heavy and irreg menses . Has always had heavy. Bleeds through overnight pad at times in a couple of hours. Sometimes skips a month. Sometimes spotting in the middle Menses: very irregular Contraception: Essure HPV vaccine: uncertain Last Pap: normal HPV: N/A History of abnormal pap: No Last mammogram: never Sexually active: Yes History of STDS: None Last sexual contact: one lifetime partner, no changes in this OB History T0 L2 SAB0 IAB0 Ectopic0 Multiple0 Live Births2 Silo Tender History LMP: 06/07/2023 (Exact Date), Having periods Age at Menarche: Age at First : Age at Menopause: Silo Tender History Comments: Sexual Activity: Yes; No partner data on record; ESSURE Contraception: Surgical PAST MEDICAL HISTORY Diagnosis Date Migraine PAST SURGICAL HISTORY Procedure Laterality Date SECTION HX 01/2013 ESSURE 2012 FAMILY HISTORY Problem Relation Age of Onset Heart Mother Diabetes Mother Thyroid Mother SOCIAL HISTORY Social History Tobacco Use Smoking status: Every Day Types: Cigarettes Smokeless tobacco: Never Vaping Use Vaping Use: Never used Substance Use Topics Alcohol use: Yes Drug use: Never Comment: second hand marijuana REVIEW OF SYSTEMS Abdomen: No abdominal pain, nausea, vomiting, diarrhea, or constipation. No bloating, early satiety, indigestion, or increased flatulence. Bladder: No dysuria, gross hematuria, urinary frequency, urinary urgency, or incontinence. Breast: No breast lumps, nipple d/c, overlying skin changes, redness or skin retraction. Allergies and current medication updated:Yes EXAM: BP 122/84 Ht 5' 6.5 (1.69m) Wt 257 lb (116.6kg) LMP 06/07/2023 BMI 40.86 kg/(m^2). GENERAL: pleasant, female in no apparent distress HEENT: Normocephalic, atraumatic, mucus membranes moist, and no lesions NECK: Supple, full range of motion, no adenopathy, and thyroid normal DERMATOLOGY: Normal, without lesions, non-icteric, and non-hirsute BREAST: soft, non-tender, symmetric, no dominant mass, normal nipple-areolar complex, no lymphadenopathy, and no nipple discharge CHEST: Normal inspiratory effort ABDOMEN: soft, non-tender, and no masses PELVIC: external genitalia normal, normal Bartholin's glands, urethra, [place]'s glands, no vulvar lesions, no cervical lesions, good vaginal support, physiologic discharge present, normal appearing perineal body and perianal region BIMANUAL: uterus normal size, shape and consistency, no adnexal masses, and non-tender RECTOVAGINAL: deferred. NEURO: alert and oriented x3,exam grossly non-focal EXTREMITIES: normal ASSESSMENT/PLAN: 1) Health maintenance: Pap done with HPV. Mammogram starting age 40. hpv vaccine discussed, recpommended,agrees 2) Contraception: Essure. Contraceptive options reviewed and information provided. 3) STD screening: Declined STD check. 4) Follow up one year or sooner as needed AUB- check pelvic US and labs cyclic provera d/w her other options other health screens ordered Sabino Church MD Patient identified by name and date of . Sumit Moser is here for her HPV 9 vaccination, injection # one of the series. Patient ?No Gardasil injection was given without incident. See immunizations for details of immunizations administered today. VIS sheet provided: Yes Patient advised to follow up in 2 months from the 1st injection Provider Sabino Church MD was present in office at time of injection. Missy Corona MA documented in this encounter [facility] Evaluation note Diagnosis Encounter for gynecological examination (general) (routine) without abnormal findings- Primary Screening for cervical cancer Screening for malignant neoplasm of the cervix Encounter for screening for human papillomavirus (HPV) Special screening examination for human papillomavirus (HPV) Abnormal uterine bleeding (AUB) Screening cholesterol level Screening for lipoid disorders Encounter for screening for diabetes mellitus Screening for diabetes mellitus Malaise and fatigue Other malaise and fatigue Need for prophylactic vaccination/inoculation against viral disease Need for prophylactic vaccination and inoculation against other viral diseases [facility] Myopia, bilateral- Primary Myopia Regular astigmatism, bilateral [facility] Diagnosis Screening cholesterol level- Primary Screening for lipoid disorders Need for prophylactic vaccination/inoculation against viral disease Need for prophylactic vaccination and inoculation against other viral diseases documented in this encounter [facility] note* Diagnosis Abnormal uterine bleeding (AUB) documented in this encounter [facility] for referral (narrative)* Diagnostic Procedure Only (Routine) - Authorized Specialty Diagnoses / Procedures Referred By Contac t Referred To Contact [facility] Diagnoses Abnormal uterine bleeding (AUB) Procedures US FEMALE PELVIS TRANSVAG US TRANSVAGINAL Sabino Church MD [address] [place] [address] [place] [address] Referral ID Status Reason Start Date Expiration Date Visits Requested Visits Authorized [id number] Authorized Auto-Generat ed Referral 06/12/2023 07/11/2024 1 1 [facility] for referral (narrative)* Diagnostic Procedure Only (Routine) - Closed Specialty Diagnoses / Procedures Referred By Contac t Referred To Contact US IMAGING Diagnoses Abnormal uterine bleeding (AUB) Procedures US FEMALE PELVIS TRANSVAG US TRANSVAGINAL Sabino Church MD [address] [place] [address] [place] [address] Referral ID Status Reason Start Date Expiration Date V isits Requested Visits Authorized [id number] Closed Auto-Generate d Referral 06/12/2023 07/11/2024 1 1 T [facility] Summary Purpose Family History No Family History Records FoundNo Family History Records Found Advance Directives No Advanced Directives Records FoundNo Advanced Directives Records Found Additional Source Comments INFORMATION SOURCE (unrecogn ized section and content) DATE CREATED AUTHOR 04/10/2018 [facility] DATE CREATED AUTHOR AUTHOR'S ORGANIZ ATION 08/07/2023 [facility] Source Comments (unrecognize d section and content) In the event this informatio n is protected by the Federal Confidentiality of Alcohol and Drug Abuse Patient Records regulations: The Federal rules restrict any use of the information to criminally investigate or prosecute any alcohol or drug abuse patient.[facility] the event this information is protected by the Federal Confidentiality of Alcohol and Drug Abuse Patient Records regulations: The Federal rules restrict any use of the information to criminally investigate or prosecute any alcohol or drug abuse patient.[facility] the event this information is protected by the Federal Confidentiality of Alcohol and Drug Abuse Patient Records regulations: The Federal rules restrict any use of the information to criminally investigate or prosecute any alcohol or drug abuse patient.[facility] the event this information is protected by the Federal Confidentiality of Alcohol and Drug Abuse Patient Records regulations: The Federal rules restrict any use of the information to criminally investigate or prosecute any alcohol or drug abuse patient.[facility] Reason for Visit (unrecogniz ed section and content) Reason Onset Date Comments Yearly Exam Irreg menses Gardasil Injection 06/12/2023 Reason Comments Yearly Exam Contact lens evaluation Reason Comments Follow Up Ultrasound and garas il Reason Comments Radiology US Specialty Diagnoses / Procedures Referred By Chino shabazz Referred To Contact [facility] IMAG[facility] Diagnoses Abnormal uterine bleeding (AUB) Procedures US FEMALE PELVIS TRANSVAG US TRANSVAGINAL Sabino Church MD [address] [place] [address] [place] [address] Referral ID Status Reason Start Date Expiration Date V isits Requested Visits Authorized [id number] Closed Auto-Generate d Referral 06/12/2023 07/11/2024 1 1 FOR RECORDS PERTAINING TO PATIENTS WHO ARE OR HAVE BEEN ENROLLED IN A CHEMICAL DEPENDENCY/SUBSTANCEABUSE PROGRAM, SOME INFORMATION MAY BE OMITTED. This clinical summary was aggregated from multiple sources. Caution should be exercised in using it in the provision of clinical care. This summary normalizes information from multiple sources, and as a consequence, information in this document may materially change the coding, format and clinical context of patient data. In addition, data may be omitted in some cases. CLINICAL DECISIONS SHOULD BE BASED ON THE PRIMARY CLINICAL RECORDS. [employer] provides no warranty or guarantee of the accuracy or completeness of information in this document.
[2025-09-07 01:21] VITALS: BP 114/87; PULSE 87; RESP 18; TEMP 36.8; O2SAT 97
== END 2025-09-07 01:22 | disposition home or self-care (01) ==
PROVIDERS: Emergency Provider Specialist/Technologist Athletic Trainer; Visit Provider Specialist/Technologist Athletic Trainer
DX: G43.909 Migraine, unspecified, not intractable, without status migrainosus (principal); M62.830 Muscle spasm of back; H53.149 Visual discomfort, unspecified; F17.210 Nicotine dependence, cigarettes, uncomplicated
CPT/HCPCS: 96361; 96374; 96375; 99284; A4216